=== PATIENT | male | born 1960 | race Caucasian/White ===

== ENCOUNTER → 2016-10-18 | Outpatient (CLI) | payer OTHER ==
[~2016-10-18] MED LIST: ASPIRIN81 M1 PO; CLARITIN10 MG PO; COZAAR25 M1 PO; DAILY MULTIPLE1 TA6 PO; FIBER TABLETS625 MG PO; FISH OIL 1,2001 EACH PO; GLUCOSAMINE S1000 M1 PO; LIPITOR10 MG PO; NIACIN500 M5 PO; PRILOSEC40 M1 PO; VITAMIN D-32000 UNIT PO
[2016-10-18 11:46] LABS: BILIRUBIN NEGATIVE (NEGATIVE); BLOOD TRACE-INTACT (NEGATIVE); CLARITY CLEAR (CLEAR); COLOR YELLOW (YELLOW); GLUCOSE NEGATIVE (NEGATIVE); KETONE NEGATIVE (NEGATIVE); LEUKO ESTERASE NEGATIVE (NEGATIVE); NITRITE NEGATIVE (NEGATIVE); PH 6.5 (5.0-9.0); PROTEIN NEGATIVE (NEGATIVE); UROBILINOGEN 0.2 E.U./dl (0.2-1.0)
[2016-10-18 12:07] LABS: ALBUMIN 3.6 gm/dl (3.1-4.5); ALKALINE PHOSPHATASE 60 U/L (45-117); BILIRUBIN, TOTAL 0.3 mg/dl (0.2-1.0); BUN 20 mg/dl (7-24); CARBON DIOXIDE 31 mmol/L (21-32); CHLORIDE 106 mmol/L (98-107); EST GLOM FILT AFRICAN AMERICAN > 60 ml/min; GLUCOSE 97 mg/dL (65-99); POTASSIUM 4.3 mmol/L (3.5-5.1); SGOT/AST 16 IU/L (3-35); SGPT/ALT 28 U/L (12-78); SODIUM 145 mmol/L (136-145); TOTAL PROTEIN 7.1 gm/dL (6.4-8.2)
[2016-10-18 12:11] LABS: BASO % 0.3 % (0.0-1.0); EOS # 0.2 10*3/uL (0.0-0.4); EOS % 2.2 % (1.0-4.0); HEMATOCRIT 44.8 % (42.0-52.0); HEMOGLOBIN 14.9 g/dl (14.0-18.0); LYMPH # 1.6 10*3/uL (1.3-4.4); LYMPH % 23.4 % (27.0-41.0); MEAN CELL VOLUME 88.4 fl (80.0-94.0); MEAN CORPUSCULAR HGB 29.4 pg (27.0-31.0); MEAN CORPUSCULAR HGB CONC 33.3 g/dl (33.0-37.0); MEAN PLATELET VOLUME 10.7 fl (9.6-12.3); MONO # 0.3 10*3/uL (0.1-1.0); MONO % 4.6 % (3.0-9.0); NEUT # 4.6 10*3/uL (2.3-7.9); NEUT % 69.1 % (47.0-73.0); PLATELET COUNT AUTOMATED 243 10*3/uL (130-400); RED BLOOD COUNT 5.07 10*6/uL (4.50-5.90); RED CELL DISTRI WIDTH 12.9 % (0-14.5); WHITE BLOOD COUNT 6.7 10*3/uL (4.8-10.8)
== END | disposition home or self-care (01) ==
LOC: LAB 11:11
PROVIDERS: Urology
DX: R31.9 Hematuria, unspecified (principal)

== ENCOUNTER → 2016-10-26 | Outpatient (CLI) | payer OTHER | END | disposition home or self-care (01) | LOC: CT 07:40 | DX: K40.20 Bilateral inguinal hernia, without obstruction or gangrene, not specified as recurrent (principal); K76.0 Fatty (change of) liver, not elsewhere classified; K57.30 Diverticulosis of large intestine without perforation or abscess without bleeding; M51.37 Other intervertebral disc degeneration, lumbosacral region ==

== ENCOUNTER → 2016-11-08 | Outpatient (CLI) | payer OTHER | END | disposition home or self-care (01) | LOC: LAB 11:24 | DX: N40.0 Benign prostatic hyperplasia without lower urinary tract symptoms (principal) ==

== ENCOUNTER 2017-12-27 19:44 | Inpatient (IN) | payer OTHER ==
[~2017-12-27] VITALS: Ht 182.8 cm; Wt 108.4 kg
--- NOTE | ~2017-12-27 | CON ---
[place], [place] REPORT OF CONSULTATION NAME: YAKOV FARFAN UNIT #: [id number] ROOM: 505 DOCTOR: FAY YANG MD BIRTHDATE: [birth year] DOS: 12/28/2017 CARDIOLOGY CONSULTATION REASON FOR CONSULTATION: Palpitations and syncope. HISTORY OF PRESENT ILLNESS: The patient is a 57-year-old man who has no previously documented heart disease. He does have a history of hypertension and prostate problems. He states that he did have an episode of syncope about 7-8 years ago. At that time, he stood up and then passed out. He was not evaluated at that time. For the last year, he has had episodes of palpitations, which come and go. He states that if he takes a deep breath, they will often resolve. Occasionally, he is mildly lightheaded, but did not have any syncopal episodes until today. He was at work and stood up. He stated that he immediately felt lightheaded and then passed out. He fell and hit his head. According to a coworker, he was out for several seconds at least. The medics on site at the [employer] where he works did an electrocardiogram, which they interpreted as showing atrial fibrillation. He was transferred to the Emergency Room where his heart rate was regular and he was admitted for further assessment. PAST MEDICAL HISTORY: Includes: 1. Hypertension. 2. Hyperlipidemia. 3. Benign prostatic hypertrophy with possible prostatitis. 4. Episode of syncope, approximately 2009. REVIEW OF SYSTEMS: The patient denies diplopia or loss of vision. He did have a syncopal episode that prompted this admission. He denies any focal weakness. He denies orthopnea or PND. He denies nausea or vomiting. He denies fevers, chills, sweats or recent weight change. He denies hemoptysis or hematemesis. He denies change in bowel or bladder habits. He has had some blood in his semen and is being treated for probable prostatitis. He denies peripheral edema. He denies heat or cold intolerance. He denies polyuria or polydipsia. Remainder of the review of systems is negative except as noted above. FAMILY HISTORY: The patient's father had atrial fibrillation when he was in his later years. His mother is still alive and has hypertension. MEDICATIONS: Prior to admission, aspirin 81 mg daily, cholecalciferol 2000 units daily, ciprofloxacin 500 mg daily for prostatitis, fish oil 1200 mg daily, glucosamine 1000 mg daily, loratadine 10 mg daily, losartan 50 mg daily, multivitamin daily and niacin 500 mg daily. The patient also tells me that he has taken Asmanex on occasion recently by inhaler. He believes that he is on metoprolol, although this is not on his admitting medication list. There is a pharmacy record that indicates that he was taking metoprolol tartrate 50 mg daily. He is also on terazosin 5 mg daily for prostate. ALLERGIES: He has no known drug allergies. SOCIAL HISTORY: The patient is and lives with his . He does not [place], [place] REPORT OF CONSULTATION NAME: YAKOV FARFAN UNIT #: [id number] ROOM: [facility] DOCTOR: FAY YANG MD BIRTHDATE: [birth year] smoke or consume alcohol. He works in a power plant. PHYSICAL EXAMINATION: GENERAL: The patient is a well-nourished white male who is awake, alert and oriented. VITAL SIGNS: Pulse is 70 and regular, although occasionally as I am examining him, his pulse does speed up to about 140 beats per minute. His blood pressure 119/72. He weighs 108.4 kg and has a body mass index of 32.5. HEENT: Normocephalic and atraumatic. Extraocular muscles are intact. Sclerae are clear. Pupils are equal, round and react to light. The oral mucosa is moist. Tongue is midline. NECK: Supple. He has no jugular distention. Carotids are full. I heard no bruits. He had no neck or supraclavicular masses and no thyromegaly. LUNGS: Respirations are unlabored. His chest is clear to auscultation and percussion. He had no presacral edema or chest wall tenderness. CARDIOVASCULAR: His heart had a regular rhythm. He had a fourth heart sound, but no third heart sound. The PMI was not displaced. He had no precordial heave, lift or thrill. ABDOMEN: Soft and normally active without masses, organomegaly or bruits. EXTREMITIES: Showed no clubbing, cyanosis or edema. Peripheral pulses are easily palpated bilaterally. LABORATORY DATA: Hemoglobin is 15.8, hematocrit 47.1, there 9800 white cells and 239,000 platelets present. Sodium is 142, potassium 4.2, chloride 106, CO2 of 26, BUN 19, creatinine 1.21. Serial troponin levels are normal. A TSH has been ordered, but is not yet available. IMAGING: I reviewed his electrocardiogram, which showed sinus rhythm with normal intervals, and normal axis. The tracing was normal. I reviewed his monitor strips and the EKG obtained while he was at the power plant. These do show intermittent episodes of supraventricular tachycardia, which is regular. I did not see any atrial fibrillation. IMPRESSION: 1. Syncope with tachycardia. Review of strips indicates that the patient has supraventricular tachycardia, probably paroxysmal atrial tachycardia. 2. Essential hypertension. 3. Hyperlipidemia. PLAN: We will check the patient's thyroid profile to make sure he does not have hyperthyroidism contributing to this. I stopped the patient's niacin. I have warned him that he should not take any decongestant type medications. We will start him on metoprolol succinate 25 mg twice a day. If this is effective in controlling his SVTs, he can be discharged, but he should be evaluated by an receiving team member. He may be a candidate for ablation electively as an outpatient. I thank the hospitalist physicians for asking our advice regarding the patient's care. [place], [place] REPORT OF CONSULTATION NAME: YAKOV FARFAN UNIT #: [id number] ROOM: [facility] DOCTOR: FAY YANG MD BIRTHDATE: [birth year] FAY YANG MD CM:CONSTR:REPORT OF CONSULTATION 1722 12/29/17 0118 interface
[2017-12-27 19:47] VITALS: BP 169/113
[2017-12-27 20:45] LABS: BASO % 0.4 % (0.0-1.0); EOS # 0.1 10*3/uL (0.0-0.4); EOS % 0.7 % (1.0-4.0); HEMATOCRIT 47.1 % (42.0-52.0); HEMOGLOBIN 15.8 g/dl (14.0-18.0); LYMPH # 1.3 10*3/uL (1.3-4.4); LYMPH % 13.3 % (27.0-41.0); MEAN CELL VOLUME 88.5 fl (80.0-94.0); MEAN CORPUSCULAR HGB 29.7 pg (27.0-31.0); MEAN CORPUSCULAR HGB CONC 33.5 g/dl (33.0-37.0); MEAN PLATELET VOLUME 10.8 fl (9.6-12.3); MONO # 0.6 10*3/uL (0.1-1.0); MONO % 5.7 % (3.0-9.0); NEUT # 7.8 10*3/uL (2.3-7.9); NEUT % 79.6 % (47.0-73.0); PLATELET COUNT AUTOMATED 239 10*3/uL (130-400); RED BLOOD COUNT 5.32 10*6/uL (4.50-5.90); RED CELL DISTRI WIDTH 13.1 % (0-14.5); WHITE BLOOD COUNT 9.8 10*3/uL (4.8-10.8)
[2017-12-27 21:04] LABS: ALBUMIN 4.2 gm/dl (3.1-4.5); ALKALINE PHOSPHATASE 62 U/L (45-117); BUN 19 mg/dl (7-24); CHLORIDE 106 mmol/L (98-107); CREATININE 1.21 mg/dL (0.70-1.30); POTASSIUM 4.2 mmol/L (3.5-5.1); SGOT/AST 17 IU/L (3-35); SGPT/ALT 32 U/L (12-78); SODIUM 142 mmol/L (136-145); TOTAL PROTEIN 8.2 gm/dL (6.4-8.2)
[2017-12-27 21:05] LABS: TROPONIN I < 0.015 ng/ml (<0.045)
[2017-12-28] VITALS (7 sets, daily range): BP systolic 116–131; BP diastolic 58–81
[2017-12-28] MEDS ORDERED: CIPROFLOXACIN500 M4 PO (01:16)
[2017-12-29] VITALS: BP 90/60
[2017-12-29 05:48] LABS: BASO % 0.3 % (0.0-1.0); EOS # 0.2 10*3/uL (0.0-0.4); EOS % 3.3 % (1.0-4.0); HEMATOCRIT 42.5 % (42.0-52.0); HEMOGLOBIN 14.3 g/dl (14.0-18.0); LYMPH # 1.5 10*3/uL (1.3-4.4); LYMPH % 25.1 % (27.0-41.0); MEAN CELL VOLUME 88.7 fl (80.0-94.0); MEAN CORPUSCULAR HGB 29.9 pg (27.0-31.0); MEAN CORPUSCULAR HGB CONC 33.6 g/dl (33.0-37.0); MEAN PLATELET VOLUME 10.7 fl (9.6-12.3); MONO # 0.4 10*3/uL (0.1-1.0); MONO % 6.1 % (3.0-9.0); NEUT # 3.9 10*3/uL (2.3-7.9); PLATELET COUNT AUTOMATED 187 10*3/uL (130-400); RED BLOOD COUNT 4.79 10*6/uL (4.50-5.90); RED CELL DISTRI WIDTH 13.1 % (0-14.5)
[2017-12-29 06:09] LABS: BUN 14 mg/dl (7-24); CHLORIDE 108 mmol/L (98-107); CHOLESTEROL 145 mg/dL (<200); CREATININE 0.86 mg/dL (0.70-1.30); HDL CHOLESTEROL 36 mg/dl (40-60); LDL CHOLESTEROL 87 mg/dL (9-159); PHOSPHOROUS 3.1 mg/dL (2.5-4.9); POTASSIUM 3.8 mmol/L (3.5-5.1); SODIUM 143 mmol/L (136-145); TRIGLYCERIDES 109 mg/dl (<150); VLDL CHOLESTEROL 22 mg/dL (6-40)
[2017-12-29 08:00] VITALS: BP 112/66
[2017-12-29 08:14] LABS: VITAMIN D, 25-HYDROXY 23.1 ng/mL (30-100)
[2017-12-29 10:00] VITALS: BP 118/64
[2017-12-29] MEDS ORDERED: METOPROLOL SUCC25 M2 PO (11:20)
[2017-12-29] MEDS ORDERED: METOPROLOL TART50 M1 PO (11:23)
[2017-12-29 12:00] VITALS: BP 115/67
[2017-12-29 13:34] VITALS: BP 112/66
== END 2017-12-29 12:57 | disposition home or self-care (01) | DRG 312 ==
LOC: ED 19:44 → 5E 12-28 00:42
PROVIDERS: Emergency Medicine; Student in an Organized Health Care Education/Training Program
DX: R55 Syncope and collapse (principal); I48.91 Unspecified atrial fibrillation; D72.9 Disorder of white blood cells, unspecified; R73.9 Hyperglycemia, unspecified; K44.9 Diaphragmatic hernia without obstruction or gangrene; I10 Essential (primary) hypertension; N40.0 Benign prostatic hyperplasia without lower urinary tract symptoms; R79.89 Other specified abnormal findings of blood chemistry; E78.5 Hyperlipidemia, unspecified; R00.0 Tachycardia, unspecified; Z79.899 Other long term (current) drug therapy; Z79.82 Long term (current) use of aspirin; Z82.49 Family history of ischemic heart disease and other diseases of the circulatory system; Z82.3 Family history of stroke; Z81.8 Family history of other mental and behavioral disorders; Z80.42 Family history of malignant neoplasm of prostate

== ENCOUNTER → 2018-04-29 | Outpatient (CLI) | payer OTHER ==
[~2018-04-29] MED LIST changes: +CIPROFLOXACIN500 M4 PO; +METOPROLOL SUCC25 M2 PO; +METOPROLOL TART50 M1 PO
== END ==
LOC: US 04:54
DX: M79.604 Pain in right leg (principal); M79.605 Pain in left leg; R60.0 Localized edema; I47.1 Supraventricular tachycardia

== ENCOUNTER → 2018-07-26 | Outpatient (CLI) | payer OTHER ==
[2018-07-27 08:10] LABS: PROSTATE SPECIFIC AG, SERUM 0.7 ng/mL (0.0-4.0)
[2018-07-27 09:11] LABS: PROSTATE SPECIFIC AG FREE 0.15 ng/mL
== END | disposition home or self-care (01) ==
LOC: LAB 14:49
PROVIDERS: Urology
DX: R35.1 Nocturia (principal)

== ENCOUNTER → 2019-02-01 | Outpatient (CLI) | payer OTHER | END | disposition home or self-care (01) | LOC: CT 00:19 | DX: K57.30 Diverticulosis of large intestine without perforation or abscess without bleeding (principal); K40.90 Unilateral inguinal hernia, without obstruction or gangrene, not specified as recurrent; R36.1 Hematospermia ==

== ENCOUNTER 2020-04-05 17:41 | Emergency (ER) | payer BC ==
[~2020-04-05] VITALS: Ht 182.8 cm; Wt 113.4 kg
[2020-04-05 18:18] LABS: BASO % 0.3 % (0.0-1.0); EOS # 0.1 10*3/uL (0.0-0.4); EOS % 0.8 % (1.0-4.0); HEMATOCRIT 48.3 % (42.0-52.0); LYMPH # 1.6 10*3/uL (1.3-4.4); LYMPH % 13.8 % (27.0-41.0); MEAN CELL VOLUME 88.8 fl (80.0-94.0); MEAN CORPUSCULAR HGB 29.4 pg (27.0-31.0); MEAN CORPUSCULAR HGB CONC 33.1 g/dl (33.0-37.0); MEAN PLATELET VOLUME 10.6 fl (9.6-12.3); MONO # 0.4 10*3/uL (0.1-1.0); MONO % 3.1 % (3.0-9.0); NEUT # 9.6 10*3/uL (2.3-7.9); NEUT % 81.5 % (47.0-73.0); PLATELET COUNT AUTOMATED 258 10*3/uL (130-400); RED BLOOD COUNT 5.44 10*6/uL (4.50-5.90); WHITE BLOOD COUNT 11.8 10*3/uL (4.8-10.8)
[2020-04-05 18:33] LABS: ALKALINE PHOSPHATASE 59 U/L (45-117); BUN 20 mg/dl (7-24); CHLORIDE 107 mmol/L (98-107); POTASSIUM 3.5 mmol/L (3.5-5.1); SGOT/AST 23 IU/L (3-35); SGPT/ALT 40 U/L (12-78); SODIUM 140 mmol/L (136-145); TOTAL PROTEIN 7.9 gm/dL (6.4-8.2)
[2020-04-05 18:35] LABS: ACT PARTIAL THROMBO TIME 25.1 SECONDS (20.0-32.1)
[2020-04-06 01:20] VITALS: BP 128/88
== END 2020-04-06 01:26 | disposition other institution (70) ==
LOC: ED 17:41
PROVIDERS: Emergency Medicine
DX: S22.32XA Fracture of one rib, left side, initial encounter for closed fracture (principal); S22.31XA Fracture of one rib, right side, initial encounter for closed fracture; S20.219A Contusion of unspecified front wall of thorax, initial encounter; J93.9 Pneumothorax, unspecified; Z79.899 Other long term (current) drug therapy; X58.XXXA Exposure to other specified factors, initial encounter; Y93.89 Activity, other specified; Y92.89 Other specified places as the place of occurrence of the external cause; Y99.8 Other external cause status

== ENCOUNTER 2020-08-29 05:07 | Emergency (ER) | payer BC ==
[~2020-08-29] VITALS: Wt 113.4 kg
[2020-08-29 05:45] VITALS: BP 151/89
[2020-08-29 06:06] LABS: BASO % 0.4 % (0.0-1.0); EOS # 0.2 10*3/uL (0.0-0.4); EOS % 2.4 % (1.0-4.0); HEMATOCRIT 48.9 % (42.0-52.0); LYMPH # 1.5 10*3/uL (1.3-4.4); LYMPH % 19.3 % (27.0-41.0); MEAN CELL VOLUME 88.6 fl (80.0-94.0); MEAN CORPUSCULAR HGB 28.6 pg (27.0-31.0); MEAN CORPUSCULAR HGB CONC 32.3 g/dl (33.0-37.0); MEAN PLATELET VOLUME 10.7 fl (9.6-12.3); MONO # 0.5 10*3/uL (0.1-1.0); MONO % 5.9 % (3.0-9.0); NEUT # 5.8 10*3/uL (2.3-7.9); NEUT % 71.7 % (47.0-73.0); PLATELET COUNT AUTOMATED 234 10*3/uL (130-400); RED BLOOD COUNT 5.52 10*6/uL (4.50-5.90); RED CELL DISTRI WIDTH 13.5 % (0-14.5)
[2020-08-29 06:33] LABS: ALBUMIN 3.7 gm/dl (3.1-4.5); ALKALINE PHOSPHATASE 70 U/L (45-117); BUN 17 mg/dl (7-24); CHLORIDE 104 mmol/L (98-107); CREATININE 1.03 mg/dL (0.70-1.30); POTASSIUM 3.5 mmol/L (3.5-5.1); SGOT/AST 12 IU/L (3-35); SGPT/ALT 23 U/L (12-78); SODIUM 139 mmol/L (136-145); TOTAL PROTEIN 8.4 gm/dL (6.4-8.2)
[2020-08-29 07:10] LABS: BILIRUBIN Negative (Negative); BLOOD Negative (Negative); CLARITY Clear (Clear); COLOR Yellow (Yellow); GLUCOSE Negative (Negative); KETONE Trace (Negative); LEUKO ESTERASE Negative (Negative); NITRITE Negative (Negative); PH 5.5 (4.5-8.0); SPECIFIC GRAVITY 1.025 (1.001-1.030); UROBILINOGEN 0.2 E.U./dl (0.0-1.0)
[2020-08-29 07:20] LABS: MUCOUS TRACE; RBC 0-2 rbc/hpf (0-2); WBC 0-2 wbc/hpf (0-5)
[2020-08-29] MEDS ORDERED: DOXYCYCLINE100 M3 PO (09:29)
== END 2020-08-29 09:51 | disposition home or self-care (01) ==
LOC: ED 05:07
PROVIDERS: Emergency Medicine
DX: N50.811 Right testicular pain (principal); N50.82 Scrotal pain; I10 Essential (primary) hypertension; F32.9 Major depressive disorder, single episode, unspecified; E78.00 Pure hypercholesterolemia, unspecified; I48.91 Unspecified atrial fibrillation; Z79.899 Other long term (current) drug therapy; Z79.82 Long term (current) use of aspirin; Z98.890 Other specified postprocedural states

== ENCOUNTER → 2020-09-13 | Outpatient (CLI) | payer BC ==
[~2020-09-13] MED LIST changes: +DOXYCYCLINE100 M3 PO
== END | disposition home or self-care (01) ==
LOC: LAB 13:43
PROVIDERS: ATTEND Family Medicine
DX: M79.606 Pain in leg, unspecified (principal)

== ENCOUNTER → 2020-09-20 | Outpatient (CLI) | payer BC | END | disposition home or self-care (01) | LOC: US 07:30 | PROVIDERS: ATTEND Family Medicine | DX: M79.605 Pain in left leg (principal) ==

== ENCOUNTER → 2021-10-03 | Outpatient (CLI) | payer BC | END | disposition home or self-care (01) | LOC: US 00:40 | PROVIDERS: ATTEND Internal Medicine | DX: N43.3 Hydrocele, unspecified (principal); N50.3 Cyst of epididymis; N50.89 Other specified disorders of the male genital organs ==

== ENCOUNTER → 2021-10-07 | Outpatient (CLI) | payer BC ==
[2021-10-07 13:14] LABS: CREATININE 0.96 mg/dL (0.70-1.30)
[2021-10-10 12:06] LABS: TESTOSTERONE FREE, (DIRECT) 7.5 pg/mL (6.6-18.1)
== END | disposition home or self-care (01) ==
LOC: LAB 00:52 → CT 14:00
PROVIDERS: Internal Medicine; Radiology Diagnostic Radiology; ATTEND Urology
DX: K57.30 Diverticulosis of large intestine without perforation or abscess without bleeding (principal); R31.9 Hematuria, unspecified; R53.83 Other fatigue

== ENCOUNTER → 2021-10-17 | Outpatient (CLI) | payer BC ==
[2021-10-17 13:58] LABS: CREATININE 0.87 mg/dL (0.70-1.30)
== END | disposition home or self-care (01) ==
LOC: US 13:21
PROVIDERS: Radiology Diagnostic Radiology; ATTEND Internal Medicine
DX: M79.604 Pain in right leg (principal); M79.605 Pain in left leg

== ENCOUNTER → 2021-11-09 | Outpatient (CLI) | payer BC | END | disposition home or self-care (01) | LOC: CT 00:56 | PROVIDERS: ATTEND Internal Medicine | DX: I73.9 Peripheral vascular disease, unspecified (principal); K40.90 Unilateral inguinal hernia, without obstruction or gangrene, not specified as recurrent ==

== ENCOUNTER → 2021-12-07 | Outpatient (CLI) | payer BC | END | disposition home or self-care (01) | LOC: LAB 11:51 | PROVIDERS: ATTEND Urology | DX: Z12.5 Encounter for screening for malignant neoplasm of prostate (principal); D40.0 Neoplasm of uncertain behavior of prostate ==

== ENCOUNTER → 2022-06-21 | Outpatient (CLI) | payer BC ==
[~2022-06-21] MED LIST changes: +DILTIAZEM HYDR180 MG PO; +HYDROCHLOROTHIA25 M1 PO; +LEVOTHYROXINE25 MCG PO; +LIPITOR20 MG PO; +TOPROL XL50 M1 PO; +VITAMIN C500 M4 PO; +XARE20MG PO; +ZESTRIL5 MG PO
== END | disposition home or self-care (01) ==
LOC: CARD 02:30
PROVIDERS: ATTEND Internal Medicine
DX: I08.0 Rheumatic disorders of both mitral and aortic valves (principal); I48.91 Unspecified atrial fibrillation; R94.31 Abnormal electrocardiogram [ECG] [EKG]

== ENCOUNTER → 2022-07-10 | Outpatient (CLI) | payer BC | END | disposition home or self-care (01) | LOC: RESCLI 00:42 | PROVIDERS: ATTEND Internal Medicine | DX: M19.90 Unspecified osteoarthritis, unspecified site (principal); E03.9 Hypothyroidism, unspecified; I10 Essential (primary) hypertension; I25.10 Atherosclerotic heart disease of native coronary artery without angina pectoris; K59.00 Constipation, unspecified; I48.91 Unspecified atrial fibrillation; E63.9 Nutritional deficiency, unspecified; E78.5 Hyperlipidemia, unspecified; J30.2 Other seasonal allergic rhinitis; I49.8 Other specified cardiac arrhythmias; Z82.49 Family history of ischemic heart disease and other diseases of the circulatory system; Z98.890 Other specified postprocedural states; Z79.01 Long term (current) use of anticoagulants; Z79.899 Other long term (current) drug therapy ==

== ENCOUNTER → 2023-08-13 | Outpatient (CLI) | payer MEDICARE, OTHER | END | disposition home or self-care (01) | LOC: RESCLI 13:43 | PROVIDERS: ATTEND Family Medicine | DX: E03.9 Hypothyroidism, unspecified (principal); E63.9 Nutritional deficiency, unspecified; E78.5 Hyperlipidemia, unspecified; J30.2 Other seasonal allergic rhinitis; F32.A Depression, unspecified; I25.10 Atherosclerotic heart disease of native coronary artery without angina pectoris; I49.8 Other specified cardiac arrhythmias; I10 Essential (primary) hypertension; K59.00 Constipation, unspecified; Z79.01 Long term (current) use of anticoagulants; Z98.890 Other specified postprocedural states; Z82.49 Family history of ischemic heart disease and other diseases of the circulatory system; Z79.899 Other long term (current) drug therapy ==

== ENCOUNTER → 2023-11-22 | Outpatient (CLI) | payer MEDICARE, OTHER | END | disposition home or self-care (01) | LOC: CARD 00:06 | PROVIDERS: ATTEND Internal Medicine | DX: R00.1 Bradycardia, unspecified (principal) ==